=== PATIENT | female | born 1955 | race Two or more races ===

== ENCOUNTER 2024-09-06 10:38 | Outpatient (CLI) | payer OTHER | END 2024-09-06 10:42 | disposition home or self-care (01) | LOC: SONOGRAMA 10:38 | PROVIDERS: ATTEND Pathology Anatomic Pathology & Clinical Pathology | DX: E04.2 Nontoxic multinodular goiter (principal); D44.0 Neoplasm of uncertain behavior of thyroid gland ==

== ENCOUNTER 2025-02-24 10:50 | Outpatient (CLI) | payer OTHER | END 2025-02-24 10:52 | disposition home or self-care (01) | LOC: SONOGRAMA 10:50 | PROVIDERS: ATTEND Pathology Anatomic Pathology & Clinical Pathology | DX: D34 Benign neoplasm of thyroid gland (principal); E07.89 Other specified disorders of thyroid; E04.1 Nontoxic single thyroid nodule ==